=== PATIENT | male | born 1985 | race Caucasian/White ===

== ENCOUNTER 2023-01-11 07:00 | Outpatient (CLI) | payer OTHER ==
[2023-01-11 19:48] LABS: BASOPHILS % (AUTO) 0.3 %; HCT - HEMATOCRIT 43.3 % (42.0-52.0); HGB - HEMOGLOBIN 15.1 g/dL (14.0-18.0); LYMPHOCYTES # (AUTO) 0.7 10^3/uL (1.5-3.5); LYMPHOCYTES % (AUTO) 9.6 %; MEAN CORPUSCULAR HEMOGLOBIN 30.3 pg (27.0-31.0); MEAN CORPUSCULAR HGB CONC 34.9 g/dL (32.0-36.0); MEAN CORPUSCULAR VOLUME 86.9 fL (80.0-94.0); MONOCYTES # (AUTO) 0.5 10^3/uL (0.0-1.0); MONOCYTES % (AUTO) 7.1 %; NEUTROPHILS # (AUTO) 5.9 10^3/uL (1.5-6.6); NEUTROPHILS % (AUTO) 82.9 %; PLT - PLATELET COUNT 226 10^3/uL (130-450); RED BLOOD COUNT 4.98 10^6/uL (4.70-6.10); RED CELL DISTRIBUTION WIDTH 12.1 % (12.0-15.0); WHITE BLOOD COUNT 7.2 x10^3/uL (4.8-10.8)
[2023-01-11 20:00] LABS: ALBUMIN 3.9 g/dL (3.2-5.5); ALBUMIN/GLOBULIN RATIO 1.3 (1.0-2.2); BILIRUBIN,TOTAL 1.9 mg/dL (0.2-1.0); CREATININE 1.2 mg/dL (0.6-1.2); POTASSIUM 3.5 mmol/L (3.5-5.0); TOTAL PROTEIN 6.8 g/dL (6.7-8.2)
== END 2023-01-11 23:59 | disposition home or self-care (01) ==
LOC: LAB.S 07:00
PROVIDERS: ATTEND Physician Assistant
DX: K52.9 Noninfective gastroenteritis and colitis, unspecified (principal); R10.13 Epigastric pain
CPT/HCPCS: 36415; 80053; 83690; 85025

== ENCOUNTER 2023-01-12 15:34 | Emergency (ER) | payer OTHER ==
[2023-01-12 15:50] VITALS: BP 148/98
[2023-01-12 16:44] LABS: BASOPHILS % (AUTO) 0.5 %; EOSINOPHILS # (AUTO) 0.1 10^3/uL (0.0-0.7); EOSINOPHILS % (AUTO) 1.2 %; HCT - HEMATOCRIT 43.5 % (42.0-52.0); HGB - HEMOGLOBIN 14.8 g/dL (14.0-18.0); LYMPHOCYTES # (AUTO) 1.3 10^3/uL (1.5-3.5); LYMPHOCYTES % (AUTO) 31.9 %; MEAN CORPUSCULAR HEMOGLOBIN 29.8 pg (27.0-31.0); MEAN CORPUSCULAR VOLUME 87.5 fL (80.0-94.0); MEAN PLATELET VOLUME 8.8 fL (7.4-11.4); MONOCYTES # (AUTO) 0.8 10^3/uL (0.0-1.0); MONOCYTES % (AUTO) 18.6 %; NEUTROPHILS # (AUTO) 1.9 10^3/uL (1.5-6.6); NEUTROPHILS % (AUTO) 47.3 %; PLT - PLATELET COUNT 210 10^3/uL (130-450); RED BLOOD COUNT 4.97 10^6/uL (4.70-6.10)
--- NOTE | 2023-01-12 16:57 | ED Physician Documentation ---
PD HPI ABD PAIN - Stated complaint Stated Complaint: NEED MORE BLOOD TEST DONE - Chief complaint Chief Complaint: Abd Pain - History obtained from History obtained from: Patient - Additional information Additional information: Otherwise healthy but somewhat obese 37-year-old gentleman had vomiting and diarrhea the night before last. Then had several hours of severe epigastric pain radiating to the chest yesterday. He went to the walk-in clinic where he had blood work done. It was notable for bilirubin of 1.9, AST and ALT both 69, and lipase 341. He has been pain-free since yesterday but was referred here for further evaluation and treatment. Patient somewhat concerned because his father of pancreatic cancer at the age of 50. He does not drink alcohol. No history of abdominal surgeries. PD PAST MEDICAL HISTORY - Allergies Allergies/Adverse Reactions: Allergies Allergy/AdvReac Type Severity Reaction Status Date / Time hydrocodone AdvReac Unknown Verified 01/12/23 15:51 PD ED PE NORMAL - Vitals Vital signs reviewed: Yes - General General: Alert and oriented X 3, No acute distress - Abdomen Abdomen: Normal bowel sounds, Soft, Non tender - Neuro Neuro: Alert and oriented X 3, Normal speech Results - Vitals Vitals: Vital Signs - 24 hr 01/12/23 01/12/23 15:45 17:21 Temperature 36.6 C Heart Rate 95 Respiratory 20 15 Rate Blood Pressure 148/98 H O2 Saturation 99 100 Oxygen O2 Source Room air - Labs Labs: Laboratory Tests 01/12/23 01/12/23 16:39 16:39 WBC 4.0 L RBC 4.97 Hgb 14.8 Hct 43.5 MCV 87.5 MCH 29.8 MCHC 34.0 RDW 12.0 Plt Count 210 MPV 8.8 Neut # (Auto) 1.9 Lymph # (Auto) 1.3 L Whitfield # (Auto) 0.8 Eos # (Auto) 0.1 Baso # (Auto) 0.0 Absolute Nucleated RBC 0.00 Nucleated RBC % 0.0 Sodium 137 Potassium 3.9 Chloride 104 Carbon Dioxide 26 Anion Gap 7.0 BUN 21 H Creatinine 1.3 H Estimated GFR (MDRD) 62 L Glucose 101 H Calcium 8.2 L Magnesium 2.2 Total Bilirubin 1.0 AST 58 H ALT 118 H Alkaline Phosphatase 71 Total Protein 6.9 Albumin 3.7 Globulin 3.2 Albumin/Globulin Ratio 1.2 Lipase 73 H Ethyl Alcohol < 5.0 - Rads (name of study) RUQ sono Relevant Findings:: Final report received, EMP independent interpretation of test PD Medical Decision Making - ED course ED course: 37-year-old gentleman had terrible abdominal pain yesterday, completely resolved today but with mild pancreatitis yesterday and mild obstructive pattern yesterday. The obstructive pattern has resolved as has the pancreatitis. He is pain-free and nontender. Suspect he passed a gallstone and his ultrasound does show gallstones versus polyps. Surgical referral was advised. He does not drink alcohol. Departure - Departure Disposition: Home, Self Care Clinical Impression: Cholelithiasis Condition: Good Record reviewed to determine appropriate education?: Yes Instructions: ED Gallstone W Biliary Colic Follow-Up: Wolf Rodriguez MD [Provider Admit Priv/Credential] - Comments: As discussed, your blood work is improved today and cryptographic vulnerability analyst did see gallstones so I suspect you passed a gallstone yesterday and you may need to have your gallbladder out in the future. Call the surgeon on Saturday for a consultation. Return for new or worsening symptoms. Discharge Date/Time: 01/12/23 18:16
[2023-01-12 16:58] LABS: ALBUMIN 3.7 g/dL (3.2-5.5); ALBUMIN/GLOBULIN RATIO 1.2 (1.0-2.2); ALKALINE PHOSPHATASE 71 IU/L (42-121); ALT ALANINE AMINOTRANSFERASE 118 IU/L (10-60); AST ASPARTATE AMINOTRANSFERASE 58 IU/L (10-42); BUN - BLOOD UREA NITROGEN 21 mg/dL (6-20); CALCIUM 8.2 mg/dL (8.5-10.3); CARBON DIOXIDE - CO2 26 mmol/L (21-32); CHLORIDE 104 mmol/L (101-111); CREATININE 1.3 mg/dL (0.6-1.2); ETOH - ETHANOL < 5.0 mg/dL; GFR - MDRD 62 (>89); GLUCOSE 101 mg/dL (70-100); LIPASE 73 U/L (22-51); MAGNESIUM 2.2 mg/dL (1.7-2.8); POTASSIUM 3.9 mmol/L (3.5-5.0); SODIUM 137 mmol/L (135-145); TOTAL PROTEIN 6.9 g/dL (6.7-8.2)
--- NOTE | 2023-01-12 18:13 | Ultrasound Report ---
PROCEDURE: Abdomen Limited INDICATIONS: upper abd pain TECHNIQUE: Real-time focused scanning was performed of the abdomen, with image documentation. COMPARISON: None FINDINGS: The liver demonstrates mildly enlarged size. The liver demonstrates moderately increased echogenicity, which limits ultrasound sensitivity for detection of masses. No definite shadowing stones are seen. Likely gallbladder wall polyps can be seen. The gallbladder wa ll does not appear thickened. There is no specific pericholecystic fluid. The sonographic Christina's si gn is negative. No biliary ductal dilatation is seen. The common bile duct measures 4-5 mm. The visualized pancreas is within normal limits. The visualized right kidney is unremarkable. This study is limited by body habitus and overlying bowel gas. IMPRESSION: Likely gallbladder wall polyps. Gallstones are possible, yet considered to be less likely based upon imaging appearance. No additional sonographic signs of cholecystitis are seen. No biliary dilatation. Limited study, secondary to body habitus and overlying bowel gas. Note: Concordant preliminary findings given by the senior account representative upon the completion of the examination to Dr. Henriquez. Reviewed by: Baljeet Ceballos MD on 01/12/2023 5:12 PM ANGELA Approved by: Baljeet Ceballos MD on 01/12/2023 5:12 PM ANGELA Station ID: [id number]
== END 2023-01-12 18:16 | disposition home or self-care (01) ==
LOC: ED 15:34
DX: K80.20 Calculus of gallbladder without cholecystitis without obstruction (principal)
CPT/HCPCS: 36415; 80053; 80320; 83690; 83735; 85025; 99282; 99284